=== PATIENT | male | born 1980 | race African-American/Black ===

== ENCOUNTER 2024-11-07 15:07 | Emergency (ER) | payer SELFPAY ==
[~2024-11-07] VITALS: Ht 177.8 cm; Wt 102.0 kg
[2024-11-07 15:09] VITALS: O2SAT 100
[2024-11-07 16:33] LABS: HEMATOCRIT. 41.9 % (42.0-52.0); HEMOGLOBIN. 13.5 g/dL (14.0-18.0); MEAN PLATELET VOLUME 8.1 fl (7.4-10.4); PLATELET 202 x1000/uL (130-400); RED BLOOD CELL COUNT 4.80 mill/uL (4.7-6.1); RED CELL DISTRIBUTION WIDTH 14.4 % (11.6-14.6)
[2024-11-07] MEDS: SODIUM CHLORIDE 0.9% 1,000 ML IV ONE (16:36)
[2024-11-07] MEDS: KETOROLAC 15MG/ML VIAL IV ONE (16:36)
[2024-11-07] MEDS: ONDANSETRON HCL 4MG/2ML INJ IV ONE (16:36)
[2024-11-07 16:50] LABS: CREATININE 1.1 mg/dL (0.6-1.3)
[2024-11-07 16:51] LABS: UREA NITROGEN BLOOD 16 mg/dL (9-23)
[2024-11-07 16:52] LABS: ASPARTATE AMINOTRANSFERASE 21 IU/L (<34)
[2024-11-07 16:53] LABS: BILIRUBIN DIRECT 0.2 mg/dL (<=3.0); BILIRUBIN TOTAL 0.6 mg/dL (0.1-1.0); PROTEIN TOTAL 7.9 g/dL (6.0-8.3)
[2024-11-07 17:21] LABS: BAND% 5.0 % (1.0-6.0); EOSINOPHILS % MANUAL 2.0 % (0.0-5.0); LYMPHOCYTES % MANUAL 9.0 % (20.0-50.0); MONOCYTES % MANUAL 1.0 % (2.0-8.0); NEUTROPHILS % MANUAL 83.0 % (45.0-75.0); PLATELET ESTIMATE NORMAL
[2024-11-07 19:01] LABS: CLARITY URINE CLOUDY (CLEAR); COLOR URINE YELLOW (YELLOW); GLUCOSE URINE NEGATIVE (NEGATIVE); KETONES URINE NEGATIVE (NEGATIVE); LEUKOCYTE ESTERASE URINE 2+ (NEGATIVE); NITRITE URINE POSITIVE (NEGATIVE); OCCULT BLOOD URINE 2+ (NEGATIVE); PH URINE 6.0 (4.5-8.0); PROTEIN URINE TRACE (NEGATIVE); SPECIFIC GRAVITY URINE 1.020 (1.005-1.030); UROBILINOGEN URINE 0.2 E.U./dL (0.2-1.0)
[2024-11-07 19:07] LABS: BACTERIA URINE 2+; SQUAMOUS EPITHELIAL CELL URINE RARE /lpf (RARE/1+)
[2024-11-07] MEDS: KETOROLAC 30MG/ML VIAL IV ONE (19:16)
[2024-11-07] MEDS ORDERED: KETO10TA2 MT (22:12)
[2024-11-07] MEDS ORDERED: TAMS-54 MT (22:12)
[2024-11-07] MEDS ORDERED: CEFP200T13 MT (22:12)
[2024-11-07] MEDS ORDERED: ONDA4TAB50 MT (22:12)
[2024-11-07] MEDS ORDERED: TAMSULOSIN HCL 0.4MG SR CAPSULE PO ONE (22:15)
[2024-11-07] MEDS: TAMSULOSIN HCL 0.4MG SR CAPSULE PO SCH (22:53)
[2024-11-07 22:56] VITALS: BP 160/100; PULSE 67; RESP 17; TEMP 37.1; O2SAT 100
== END 2024-11-07 23:06 | disposition home or self-care (01) ==
LOC: ER 15:07
DX: N13.6 Pyonephrosis (principal); N28.81 Hypertrophy of kidney; Z79.899 Other long term (current) drug therapy
CPT/HCPCS: 80076; 80048; 81003; 83690; 85025; 36415; 74176; 76770; 96361; 96374; 96375; 96376; 99285; J1885 ×2; J2405; J7030; Z7610 ×2